=== PATIENT | male | born 1940 | race Caucasian/White ===

== ENCOUNTER 2018-09-17 23:15 | Inpatient (IN) ==
[2018-09-17] MEDS ORDERED: 0.9 % Sodium Chloride 1,000 ML IVC ONE (23:41)
--- NOTE | 2018-09-18 00:22 | Emergency Department Note ---
Disposition Clinical Impression: Ventricular dysfunction of heart, Mobitz type 2 second degree heart block Syncope Qualifiers: Syncope type: unspecified Qualified Code(s): R55 - Syncope and collapse Disposition: Admitted As Inpatient Condition: Fair Referrals: Rashad Solo MD [Primary Care Provider] - Forms: ED Satisfaction Letter Time of Disposition: 01:26 General Adult HPI - General Chief complaint: ED Syncope Stated complaint: syncopal episode Time Seen by Provider: 09/17/18 23:28 Source: patient Limitations: no limitations - History of Present Illness Pain Scale: 0 - Related Data Allergies Allergy/AdvReac Type Severity Reaction Status Date / Time No Known Allergies Allergy Unverified 03/02/16 10:58 Past Medical History - Past Medical History Medical history: Reports: coronary artery disease, diabetes, GERD, hypertension Surgical history: Reports: angioplasty/stent, herniorrhaphy, orthopedic, other Psychiatric history: Reports: no psych history - Social History Smoking Status: Never smoker Smokeless Tobacco Status: No Alcohol use: Reports: none, occasionally Drug use: Reports: none Physical Exam - General Limitations: no limitations General appearance: alert, in no apparent distress Course Vital Signs Temperature 98.0 F 09/17/18 23:16 Pulse Rate 76 09/17/18 23:16 Respiratory Rate 16 09/17/18 23:16 Blood Pressure 184/95 09/17/18 23:16 O2 Sat by Pulse Oximetry 96 09/17/18 23:16 Temperature 98.0 F 09/17/18 23:16 Pulse Rate 70 09/18/18 01:03 Respiratory Rate 14 09/18/18 01:03 Blood Pressure 183/88 09/18/18 01:03 O2 Sat by Pulse Oximetry 96 09/18/18 01:03 Oxygen Delivery Oxygen Delivery Room Air Medical Decision Making - Lab Data Result diagrams: 09/18/18 00:10 09/18/18 00:10 Lab Results 09/18/18 09/18/18 09/18/18 Range/Units 00:03 00:10 00:10 WBC 10.9 (4.3-11.1) K/mcL RBC 4.02 L (4.19-5.50) M/mcL Hgb 13.3 (12.9-16.9) g/dL Hct 37.7 (37.5-50.1) % MCV 93.8 (83.0-100.0) fL MCH 33.1 (28.0-33.3) pg MCHC 35.3 (31.6-35.5) g/dL RDW 12.4 (11.5-14.5) % Plt Count 229 (140-400) K/mcL MPV 9.4 (9.4-12.4) fL Immature Gran % 0.5 (0-4) % Seg Neutrophils % 79.0 % Lymphocytes % 10.2 % Monocytes % 9.0 % Eosinophils % 0.9 % Basophils % 0.4 % Neutrophils # 8.7 (1.6-8.9) K/mcL Lymphocytes # 1.1 (0.6-4.6) K/mcL Monocytes # 1.0 (0.0-1.3) K/mcL Eosinophils # 0.1 (0.0-0.6) K/mcL Basophils # 0.0 (0.0-0.2) K/mcL PT 12.1 (9.4-12.1) Seconds INR 1.1 APTT 32.6 (26.0-36.0) Seconds Sodium (136-145) mEq/L Potassium (3.5-5.1) mEq/L Chloride (98-107) mEq/L Carbon Dioxide (23-29) mEq/L BUN (8-23) mg/dL Creatinine (0.70-1.30) mg/dL Est GFR ( Amer) (> 60) Est GFR (Non-Af Amer) (> 60) BUN/Creatinine Ratio (6-26) Glucose (70-105) mg/dL Calculated Osmolality (280-300) Calcium (8.6-10.3) mg/dL Troponin I (< 0.04) ng/mL Urine Color Yellow (Yellow) Urine Clarity Clear (Clear) Urine pH 7.0 (5.0-8.0) pH Units Ur Specific [place] 1.011 (1.010-1.025) Urine Protein Negative (Neg-Trace) mg/dL Urine Glucose (UA) Normal (Normal) mg/dL Urine Ketones Negative (Negative) mg/dL Urine Blood Negative (Negative) Urine Nitrite Negative (Negative) Urine Bilirubin Negative (Negative) Urine Urobilinogen Normal (Normal) mg/dL Ur Leukocyte Esterase Trace H (Negative) Urine Microscopic RBC 0-3 (0-3) per hpf Urine Microscopic WBC 0-3 (0-3) per hpf Ur Squamous Epith Cells Few (None-Few) per lpf Urine Bacteria None Seen (None-Few) per hpf Hyaline Casts None Seen (None-Few) per lpf 09/18/18 Range/Units 00:10 WBC (4.3-11.1) K/mcL RBC (4.19-5.50) M/mcL Hgb (12.9-16.9) g/dL Hct (37.5-50.1) % MCV (83.0-100.0) fL MCH (28.0-33.3) pg MCHC (31.6-35.5) g/dL RDW (11.5-14.5) % Plt Count (140-400) K/mcL MPV (9.4-12.4) fL Immature Gran % (0-4) % Seg Neutrophils % % Lymphocytes % % Monocytes % % Eosinophils % % Basophils % % Neutrophils # (1.6-8.9) K/mcL Lymphocytes # (0.6-4.6) K/mcL Monocytes # (0.0-1.3) K/mcL Eosinophils # (0.0-0.6) K/mcL Basophils # (0.0-0.2) K/mcL PT (9.4-12.1) Seconds INR APTT (26.0-36.0) Seconds Sodium 127 L (136-145) mEq/L Potassium 4.2 (3.5-5.1) mEq/L Chloride 95 L (98-107) mEq/L Carbon Dioxide 25 (23-29) mEq/L BUN 16 (8-23) mg/dL Creatinine 0.78 (0.70-1.30) mg/dL Est GFR ( Amer) > 60 (> 60) Est GFR (Non-Af Amer) > 60 (> 60) BUN/Creatinine Ratio 21 (6-26) Glucose 142 H (70-105) mg/dL Calculated Osmolality 268 L (280-300) Calcium 9.7 (8.6-10.3) mg/dL Troponin I 0.03 (< 0.04) ng/mL Urine Color (Yellow) Urine Clarity (Clear) Urine pH (5.0-8.0) pH Units Ur Specific [place] (1.010-1.025) Urine Protein (Neg-Trace) mg/dL Urine Glucose (UA) (Normal) mg/dL Urine Ketones (Negative) mg/dL Urine Blood (Negative) Urine Nitrite (Negative) Urine Bilirubin (Negative) Urine Urobilinogen (Normal) mg/dL Ur Leukocyte Esterase (Negative) Urine Microscopic RBC (0-3) per hpf Urine Microscopic WBC (0-3) per hpf Ur Squamous Epith Cells (None-Few) per lpf Urine Bacteria (None-Few) per hpf Hyaline Casts (None-Few) per lpf Critical Care Time Critical Care Time: Yes Total Critical Care Time: 45 Attestation: Critical care performed: Time is exclusive of separately billable procedures. Time includes: direct patient care, patient reassessment, coordination of patient care, interpretation of data (laboratory data, radiology data, and respiratory data), review of patient's medical records, medical consultation and documentation of patient care. Procedures included in critical care time: Procedures excluded from critical care time: Attestation Statement - Attestation Attestation: I, Oscar Rodriguez DO, examined this patient [id number] and my medical decision-making was reviewed with Michael Connor PGY-1, Resident Physician. I agree with the documented findings, disposition and treatment plan as described except to the extent set forth below. I personally supervised and was present for the roque/critical portions of the procedures completed by the resident documented below. Please see my progress notes for details. 78-year-old male presents emergency room with concern for 2 syncopal events here today. He feels like he remembers the entirety of the event but then there is some spotty aspects to the recollection of the actual fall and injuries. Patient states that he felt like his knee gave out but does not remember going to the ground. Patient has no specific history of syncope in the past. He denies any cardiac related history as well. During any of the events here today he denied chest pain, shortness of breath. Denies any headache vision changes nausea vomiting or diarrhea. No fevers no chills. No falls trauma or injury prior to the event today. Patient has no visible signs of trauma deformity or injury to the extremities at this time. Is atraumatic. Pupils are equal and reactive. Extraocular muscles are intact. She has no midline tenderness is spine. Lungs are clear to auscultation heart is regular. Abdomen is soft. No guarding no rigidity no peritoneal symptoms noted at this point. Patient is able to answer questions appropriately. He is appropriate conversational status at this time. He has no acute neurologic deficits or symptoms. Patient is concerning secondary to the amnestic events revolve around the actual syncope here today. Syncope evaluation will be established with CT imaging the head chest x-ray EKG and screening labs looking for infectious or metabolic related derangement causing the presentation of this time. Disposition will most likely be admission the hospital once a full workup treatment course have been establi shed. Patient is otherwise in no distress. Vital signs are stable. Disposition pending. See detailed documentation the physical exam, medical intervention, medical decision-making and disposition in the resident physician's note. No critical care provider the patient's treatment course at this time. 0100 Patient has negative laboratory workup at this point. His entire syncope evaluation is unremarkable. The hospitalist Dr. Holm reviewed the case at length. No other recommendations or concerns were noted. Just after getting off the phone with the hospitalist, the patient went into what appears to be a ventricular escape rhythm with no discernible ventricular response with the sta ble atrial contractions. Patient had another syncopal events at that point. This is most likely the source of the symptoms. Patient had the pacemaker pads applied immediately. Otherwise the patient is stable. The rhythm strips were reviewed during this patient's syncopal event. He went into a ventricular escape rhythm and then subsequently into a second-degree type II heart block. All calcium channel blockers will be stopped at this time at the request of the casing builder Dr. Leary. They will reevaluate the patient the morning and determine if he needs temporary pacemaker or pacemaker placement that time. Patient does manage his cardiac issues up at [facility]. At this point do not feel comfortable transferring the patient told definitive cardiac evaluation is completed. The family also agrees with that at this time. Patient is otherwise clinically stable. 45 minutes of critical care by the patient's treatment course secondary to multidisciplinary intervention as well as cardiac monitoring and symptomatic control.
[2018-09-18 00:25] LABS: Bilirubin,Urine Negative (Negative); Blood,Urine Negative (Negative); Clarity,Urine Clear (Clear); Color,Urine Yellow (Yellow); Glucose,Urine (UA) Normal (Normal); Ketones,Urine Negative (Negative); Leukocyte Esterase,Urine Trace (Negative); Nitrite,Urine Negative (Negative); Protein,Urine Negative (Neg-Trace); Specific Gravity,Urine 1.011 (1.010-1.025); Urobilinogen,Urine Normal (Normal)
[2018-09-18 00:26] LABS: Basophils % 0.4 %; Eosinophils # 0.1 K/mcL (0.0-0.6); Eosinophils % 0.9 %; Hematocrit 37.7 % (37.5-50.1); Hemoglobin 13.3 g/dL (12.9-16.9); Immature Granulocytes % 0.5 % (0-4); Lymphocytes # 1.1 K/mcL (0.6-4.6); Lymphocytes % 10.2 %; Mean Corpuscular HGB Conc 35.3 g/dL (31.6-35.5); Mean Corpuscular Hemoglobin 33.1 pg (28.0-33.3); Mean Corpuscular Volume 93.8 fL (83.0-100.0); Mean Platelet Volume 9.4 fL (9.4-12.4); Neutrophils # 8.7 K/mcL (1.6-8.9); Platelet Count 229 K/mcL (140-400); Red Blood Count 4.02 M/mcL (4.19-5.50); Red Cell Distribution Width 12.4 % (11.5-14.5)
[2018-09-18 00:27] LABS: Bacteria,Urine None Seen per hpf (None-Few); Hyaline Casts,Urine None Seen per lpf (None-Few); RBC,Urine 0-3 per hpf (0-3); Squamous Epithelial Cell,Urine Few per lpf (None-Few); WBC,Urine 0-3 per hpf (0-3)
--- NOTE | 2018-09-18 00:27 | Emergency Department Note ---
Disposition Clinical Impression: Ventricular dysfunction of heart, Mobitz type 2 second degree heart block Syncope Qualifiers: Syncope type: unspecified Qualified Code(s): R55 - Syncope and collapse Disposition: Admitted As Inpatient Condition: Good Time of Disposition: 03:08 General Adult HPI - General Chief complaint: ED Syncope Stated complaint: syncopal episode Time Seen by Provider: 09/17/18 23:28 Source: patient Limitations: no limitations Nursing Notes Reviewed: Yes Vital Signs Reviewed: Yes - History of Present Illness HPI Narrative: Mr. Loomis is a 78M who presents today after a near syncopal episode at home. He reports he has had 3 of these episodes in the past 24 hours. Reports during each of these episodes he began to feel very lightheaded. Denies any LOC. Pt's is at bedside and reports the patient did appear to be confused after a fall associated with one of these episodes. Pt stated he feels like he can recall all details of events, but does admit to some gaps in memory of the fall and associated injuries. Pt denies any previous history of syncope prior to this. He denies any cardiac history beyond a TAVR procedure. Denies any recent illnesses. Denies any fever, chills, chest pain, shortness of breath, headaches, blurry vision, nausea, vomiting, numbness, or tingling. Pain Scale: 0 - Related Data Home Medications Medication Instructions Recorded Confirmed Aspirin [Piatt Aspirin EC] 81 mg PO DAILY 09/18/18 09/18/18 Atorvastatin [Lipitor] 40 mg PO HS 09/18/18 09/18/18 Finasteride [Proscar] 5 mg PO DAILY 09/18/18 09/18/18 Fluorouracil [Fluoroplex] 1 applic TP DAILY 09/18/18 09/18/18 Metformin HCl 500 mg PO DAILY 09/18/18 09/18/18 Metoprolol Succinate [Toprol Xl] 25 mg PO DAILY 09/18/18 09/18/18 Tamsulosin [Flomax] 0.4 mg PO DAILY 09/18/18 09/18/18 Allergies Allergy/AdvReac Type Severity Reaction Status Date / Time No Known Allergies Allergy Unverified 03/02/16 10:58 All systems ED: reviewed and negative except as stated. Review of Systems: As Per HPI Constitutional: Reports: weakness. Denies: fever, chills Eyes: Denies: vision change Cardiovascular: Reports: syncope. Denies: chest pain, palpitations, dyspnea on exertion, orthopnea, edema Respiratory: Denies: cough, dyspnea, wheezes Gastrointestinal: Denies: abdominal pain, nausea Endocrine: Reports: fatigue Past Medical History - Past Medical History Attestation: Yes The following information was validated with the patient. Source: patient, old records reviewed, obtained from family, nursing notes reviewed Medical history: Reports: coronary artery disease, diabetes, GERD, hypertension Surgical history: Reports: angioplasty/stent, herniorrhaphy, orthopedic, other Psychiatric history: Reports: no psych history - Social History Smoking Status: Never smoker Smokeless Tobacco Status: No Alcohol use: Reports: none, occasionally Drug use: Reports: none Physical Exam Constitutional: Elderly male in no acute distress Head: Normocephalic, atraumatic Eyes: PERRL, EOMI, sclera anicteric Lungs: Clear to auscultation bilaterally. Nonlabored breathing. No wheezes, rales, or rhonchi noted. Cardiac: RRR. +s1 +S2 Grade 2 blowing diastolic murmur. No clicks, or rubs noted. GI: Abdomen soft, nontender, nondistended. Extremities: Warm, radial pulses palpable and symmetrical. No cyanosis, pedal edema, or calf tenderness. Neuro: Alert and oriented 3. No focal deficits. Strength 5/5 in all 4 extremities. Sensation intact. No pronator drift. CN II-XII intact. Normal speech. Skin: Warm, dry, and intact. - General Limitations: no limitations General appearance: alert, in no apparent distress Course Course Narrative: Initial history and physical exam were concerning for unknown eitiology of syncope, possibly metabolic derangement or cardiac arrhythmia. Initial evaluation included CBC, BMP, PT/INT, EKG, Troponin, CT head, and CXR. Diagnoses considered including CVA were less likely with no neurological deficits, ACS with no chest pain, shortness of breath, or nausea. CXR showed no acute abnormality. Labs were grossly unremarkable except for hyponaturemia of 127. Troponin was negative. CT head was negative. Pt's case was discussed with hospitalist, Dr Holm, who accepted the patient for admission for further syncope workup. Shortly after contacting the hospitalist the pt reported he was beginning to experience another episode of lightheadedness. Telemetry showed distinct p-waves but no QRS complexes suggestive of a heart block for approximately 5 "beats". Another similar episodes occurred approximately 10 minutes later for approximately 10 sustained "beats". call or contact centre coach cardiology, Dr Leary, was contacted. He recommended holding home Metoprolol, and placing transcutanous pacer pads on patient. However pt began to experience these episodes more frequently, approximately every 2-5 minutes. There was also noted Type II 2nd degree heart block after t hese escape rhythms. Dr Rodriguez contacted Dr Leary again. At that time it was recommended the patient have an IJ central line placed and be started on Dopamine. The IJ placed without any complication by Dr Rodriguez, however several attempts were made secondary to vascular anomaly. Pt tolerated procedure well and there were no complications. Bleeding was controlled well throughout the procedure. Dopamine was started peripherally for a short period of time until the IJ was established. Cardiology was contacted again and reported they are coming in the emergency room to place a temporary pacemaker. Once the evaluation by cardiology is complete and the pacer is placed, a completed disposition for admission versus transfer to outside facility will be completed at that time. Patient is otherw ise stable but does have a concerning critical arrhythmia. Definitive management is required. Patient was discussed and reviewed with the overnight attending ER physician Dr. Alfredo in case there is any recommendations for transfer. Hospitalist, Dr Holm, was updated of all these events. - Consultations Consultation #1: Discussed pt's case with Dr Holm, hospitalist, who accepted the patient for admission for further syncope workup. Time: 01:10 Consultation #2: Clinical Team Lead, Dr Leary, was contacted with multiple episodes of no ventricular response and Type II 2nd degree heart block. He recommended holding any anti-arrhythmic home medications and placing transcutaneous pacer pads on patient. Placed consult for cardiology. Time: 01:30 Vital Signs Temperature 98.0 F 09/17/18 23:16 Pulse Rate 76 09/17/18 23:16 Respiratory Rate 16 09/17/18 23:16 Blood Pressure 184/95 09/17/18 23:16 O2 Sat by Pulse Oximetry 96 09/17/18 23:16 Temperature 97.9 F 09/19/18 08:07 Pulse Rate 79 09/19/18 10:00 Respiratory Rate 20 09/19/18 10:00 Blood Pressure 133/101 09/19/18 10:00 O2 Sat by Pulse Oximetry 92 09/19/18 10:00 Oxygen Delivery Oxygen Delivery Nasal Cannula Procedures - Central Line Placement Right IJ Central Line Inserted*: Yes Central Line Catheter Replacement*: No Central Line Insertion: elective Consent Obtained: verbal consent, written consent Procedural Pause: verify patient name and date of , timeout performed per policy, sena and assess the site, assemble equipment and verify supplies, perform hand hygiene Patient Placed on Monitor/Pulse Ox: Yes During the Procedure: clinician is wearing sterile gloves, cap, mask,& gown d uring insertion, sterile field and sterile technique are maintained, patient's face is covered with drape or mask and wearing a cap, everyone in room is wearing a mask Central Line Prep: Chlorhexidine scrub, sterile drapes applied Prep the Procedure Site: apply chloraprep to the skin using a back and forth scrubbing motion, apply chloraprep for 30 seconds (upper body), 1-2 min (femoral sites), allow prep to dry, drape the patient with a full body drape Local Anesthetic: lidocaine 1% Ultrasound Used for Placement: Yes Central Line Lumen Inserted: triple Post Procedure: sutured in place, good blood return, all ports aspirated, flushed, capped, sterile dressing applied, guide wire removed and visualized, dressing is dated Post Procedure X-Ray: tip of catheter in good position, no pneumothorax seen Patient Tolerated Procedure: well, no complications Complications: none Name of Clinician Inserting Central Line: Dr Rodriguez Clinician Assisting/Completing Checklist: Dr Connor Date: 09/18/18 Time: 02:45 Medical Decision Making - Medical Records Medical records reviewed: Yes I reviewed the patient's medical records. - Lab Data Lab results reviewed: Yes I reviewed the patient's lab results. Result diagrams: 09/19/18 06:06 09/19/18 06:06 Lab Results 09/18/18 09/18/18 09/18/18 Range/Units 00:03 00:03 00:10 WBC 10.9 (4.3-11.1) K/mcL RBC 4.02 L (4.19-5.50) M/mcL Hgb 13.3 (12.9-16.9) g/dL Hct 37.7 (37.5-50.1) % MCV 93.8 (83.0-100.0) fL MCH 33.1 (28.0-33.3) pg MCHC 35.3 (31.6-35.5) g/dL RDW 12.4 (11.5-14.5) % Plt Count 229 (140-400) K/mcL MPV 9.4 (9.4-12.4) fL Immature Gran % 0.5 (0-4) % Seg Neutrophils % 79.0 % Lymphocytes % 10.2 % Monocytes % 9.0 % Eosinophils % 0.9 % Basophils % 0.4 % Neutrophils # 8.7 (1.6-8.9) K/mcL Lymphocytes # 1.1 (0.6-4.6) K/mcL Monocytes # 1.0 (0.0-1.3) K/mcL Eosinophils # 0.1 (0.0-0.6) K/mcL Basophils # 0.0 (0.0-0.2) K/mcL PT (9.4-12.1) Seconds INR APTT (26.0-36.0) Seconds Sodium (136-145) mEq/L Potassium (3.5-5.1) mEq/L Chloride (98-107) mEq/L Carbon Dioxide (23-29) mEq/L BUN (8-23) mg/dL Creatinine (0.70-1.30) mg/dL Est GFR ( Amer) (> 60) Est GFR (Non-Af Amer) (> 60) BUN/Creatinine Ratio (6-26) Glucose (70-105) mg/dL Calculated Osmolality (280-300) Calcium (8.6-10.3) mg/dL Troponin I (< 0.04) ng/mL Urine Color Yellow (Yellow) Urine Clarity Clear (Clear) Urine pH 7.0 (5.0-8.0) pH Units Ur Specific [place] 1.011 (1.010-1.025) Urine Protein Negative (Neg-Trace) mg/dL Urine Glucose (UA) Normal (Normal) mg/dL Urine Ketones Negative (Negative) mg/dL Urine Blood Negative (Negative) Urine Nitrite Negative (Negative) Urine Bilirubin Negative (Negative) Urine Urobilinogen Normal (Normal) mg/dL Ur Leukocyte Esterase Trace H (Negative) Urine Microscopic RBC 0-3 (0-3) per hpf Urine Microscopic WBC 0-3 (0-3) per hpf Ur Squamous Epith Cells Few (None-Few) per lpf Urine Bacteria None Seen (None-Few) per hpf Hyaline Casts None Seen (None-Few) per lpf Urine Creatinine 35 mg/dL Urine Sodium 62.8 mEq/L 09/18/18 09/18/18 Range/Units 00:10 00:10 WBC (4.3-11.1) K/mcL RBC (4.19-5.50) M/mcL Hgb (12.9-16.9) g/dL Hct (37.5-50.1) % MCV (83.0-100.0) fL MCH (28.0-33.3) pg MCHC (31.6-35.5) g/dL RDW (11.5-14.5) % Plt Count (140-400) K/mcL MPV (9.4-12.4) fL Immature Gran % (0-4) % Seg Neutrophils % % Lymphocytes % % Monocytes % % Eosinophils % % Basophils % % Neutrophils # (1.6-8.9) K/mcL Lymphocytes # (0.6-4.6) K/mcL Monocytes # (0.0-1.3) K/mcL Eosinophils # (0.0-0.6) K/mcL Basophils # (0.0-0.2) K/mcL PT 12.1 (9.4-12.1) Seconds INR 1.1 APTT 32.6 (26.0-36.0) Seconds Sodium 127 L (136-145) mEq/L Potassium 4.2 (3.5-5.1) mEq/L Chloride 95 L (98-107) mEq/L Carbon Dioxide 25 (23-29) mEq/L BUN 16 (8-23) mg/dL Creatinine 0.78 (0.70-1.30) mg/dL Est GFR ( Amer) > 60 (> 60) Est GFR (Non-Af Amer) > 60 (> 60) BUN/Creatinine Ratio 21 (6-26) Glucose 142 H (70-105) mg/dL Calculated Osmolality 268 L (280-300) Calcium 9.7 (8.6-10.3) mg/dL Troponin I 0.03 (< 0.04) ng/mL Urine Color (Yellow) Urine Clarity (Clear) Urine pH (5.0-8.0) pH Units Ur Specific [place] (1.010-1.025) Urine Protein (Neg-Trace) mg/dL Urine Glucose (UA) (Normal) mg/dL Urine Ketones (Negative) mg/dL Urine Blood (Negative) Urine Nitrite (Negative) Urine Bilirubin (Negative) Urine Urobilinogen (Normal) mg/dL Ur Leukocyte Esterase (Negative) Urine Microscopic RBC (0-3) per hpf Urine Microscopic WBC (0-3) per hpf Ur Squamous Epith Cells (None-Few) per lpf Urine Bacteria (None-Few) per hpf Hyaline Casts (None-Few) per lpf Urine Creatinine mg/dL Urine Sodium mEq/L - Radiology Data Radiology results reviewed: Yes I reviewed the patient's radiology results. Head CT 09/18/18 23:41 IMPRESSION: No acute intracranial abnormality. D/ / Holland Hines / Holland Hines Interpreting Provider: Holland Hines - EKG Data EKG #1 EKG attestation: Yes I reviewed and interpreted this EKG. EKG results narrative: EKG shows normal sinus rhythm with rate of 71. Left axis deviation. Prolonged [place] interval greater than 220, ventricular rate 50 and 90. Abnormal progression, early transition QRS >0 in V2. LVH with secondary repolarization abnormality, multi-LVH criteria. Attestation Statement - Attestation Attestation: I, Oscar Rodriguez DO, examined this patient [id number] and my medical decision-making was reviewed with Michael Connor PGY-1, Resident Physician. I agree with the documented findings, disposition and treatment plan as described except to the extent set forth below. I personally supervised and was present for the roque/critical portions of the procedures completed by the resident documented below. Please see my progress notes for details.
[2018-09-18 00:33] LABS: INR 1.1; Prothrombin Time 12.1 Seconds (9.4-12.1)
[2018-09-18 00:36] LABS: Activated Partial Thrombo Time 32.6 Seconds (26.0-36.0)
[2018-09-18 00:48] LABS: BUN/Creatinine Ratio 21 (6-26); Blood Urea Nitrogen 16 mg/dL (8-23); Calcium 9.7 mg/dL (8.6-10.3); Carbon Dioxide 25 mEq/L (23-29); Chloride 95 mEq/L (98-107); Glucose 142 mg/dL (70-105); Osmolality,Calculated 268 (280-300); Potassium 4.2 mEq/L (3.5-5.1); Sodium 127 mEq/L (136-145); Troponin I 0.03 ng/mL (< 0.04); eGFR For Non-African Americans > 60 (> 60)
[2018-09-18 02:38] LABS: Sodium, Urine 62.8 mEq/L
[2018-09-18] MEDS ORDERED: Ondansetron 4 MG/2 ML VIAL IVP ONE (03:12)
[2018-09-18] MEDS ORDERED: ceFAZolin 1,000 MG in D5% in Water 100 ML IVPB ONE (04:34)
--- NOTE | 2018-09-18 04:47 | Cardiology Consult Note ---
Date of Encounter: 09/18/18 Time of Encounter: 04:42 Assessment and Plan (1) Ventricular asystolia Current Visit: Yes Status: Acute Multiple episodes s/p TVP rate at 60 bpm, ma at 7 and sensitivity at .8. Patient will be transferred to ICU and likely PPM today (2) Mobitz type 2 second degree heart block Current Visit: Yes Status: Acute AV Block with ventricular standstill s/p TVP Discussion w patient/family: The assessment and plan as outlined above was discussed with the patient and/or family members who expressed understanding and agreement. All questions were answered. Thank you for involving us in the care of your patient. Please call with any questions. History of Present Illness Consult date: 09/18/18 Consult reason: Asystole Chief complaint: Syncope History of present illness: Mr. Loomis is a 78 year old male s/p TAVR x 3 months ago here for syncope. Patient found to have multiple runs of ventricular standstill for prolonged periods with one leading to TLOC. Patient placed on dopamine for improved rate but failed. TVP placed due to frequent episodes of asystole while in ED. Episodes lasted upto 6-10 seconds symptomatic. [employer] was called but due to rapid consecutive episodes TVP placed in the ER. Triple lumen catheter was exchanged over for Cordis and TVP wire threaded through. Eventually after second wire capture was obtained. Patient did not have any episodes of syncope or TLOC during procedure. Cxray confirmed placment in the RV. Final reading pending. Past Med Surg Social Fam HX - Past Medical History Medical history: coronary artery disease, diabetes, GERD, hypertension Additional medical history: irreg heart. factor V defeciency. bph Psychiatric history: no psych history - Past Surgical History Surgical History: angioplasty/stent, herniorrhaphy, orthopedic, other Additional surgical history: t&a. cardiac and carotid stents. ankle fx. aortic valve replacement - Social History Smoking Status: Never smoker Smokeless Tobacco Status: No Alcohol use: none, occasionally Drug use: none Medications and Allergies Allergy/AdvReac Type Severity Reaction Status Date / Time No Known Allergies Allergy Unverified 03/02/16 10:58 All Systems Review: The remainder of the systems were reviewed and are negative Physical Examination Vital Signs, Last 4 Hours Pulse Resp BP Pulse Ox 09/18/18 04:36 78 24 118/65 93 09/18/18 03:58 67 18 120/65 95 09/18/18 03:27 74 16 143/75 96 09/18/18 03:11 83 14 177/85 95 09/18/18 02:59 65 15 121/67 92 09/18/18 02:06 77 14 160/85 96 09/18/18 01:54 75 15 171/97 96 09/18/18 01:38 69 14 165/108 97 09/18/18 01:03 70 14 183/88 96 General: Conversant, No Apparent Distress HEENT: Atraumatic, Normocephaly, Mucus Membranes Moist Neck: No JVD, Normal carotid pulses Cardiac: Reg Rate and Rhythm, Normal S1 and S2, No Murmur Lungs: Normal Breath Sounds, No Wheeze, Rales, Rhonchi Neuro: Alert and responsive, No focal deficits noted Abdomen: Soft, Non-Tender Skin: No rashes noted on visualized skin Musculoskeletal: No Chest Wall Tenderness Extremities: No Clubbing, No Cyanosis, No Edema, Normal Pulses Results 09/18/18 00:10 09/18/18 00:10 Lab Results 09/18/18 09/18/18 09/18/18 00:10 00:10 00:10 WBC 10.9 Hgb 13.3 Hct 37.7 Plt Count 229 INR 1.1 APTT 32.6 Sodium 127 L Potassium 4.2 Chloride 95 L Carbon Dioxide 25 BUN 16 Creatinine 0.78 Glucose 142 H Calcium 9.7 Troponin I 0.03 Consult Discharge Plan - Plan Referrals: Rashad Solo MD [Primary Care Provider] -
--- NOTE | 2018-09-18 04:54 | Procedure Note ---
Date of procedure: 09/18/18 Pre-op diagnosis: Ventricular asystole Procedure: TVP placed through the RIJ. Wire was reinserted after pulled out, IV Vancomycin 1 gm x 1 and Ancef 1 gm for infection prevention. (TVP wire reinserted). No other TV wires available in hospital and emergent need. Wire likely Sterile but this was a precaution since it was pulled out laying on sterile gown on top of patient for 20 minutes. Anesthesia: local Surgeon: Malachi Leary Was there an assistant grocery store manager present: No Estimated blood loss (cc): 5 Specimen: none Pathology: none sent (TVP placed after exchanging triple lumen with cordis) Condition: stable Disposition: ICU
[2018-09-18] MEDS ORDERED: Naloxone 0.4 MG/ML INJ IVP PRN (04:59)
[2018-09-18] MEDS ORDERED: 0.9 % Sodium Chloride 1,000 ML IVC SCH (05:00)
--- NOTE | 2018-09-18 05:08 | Internal Med History&Physical ---
Date of Encounter: 09/18/18 Time of Encounter: 05:05 Internal Medicine - H&P: HPI Chief complaint: Syncope History of present illness: Mr. Loomis is a 78 year old male with a past medical history of hyperlipidemia, diabetes, hypertension, coronary artery disease status post cardiac stents in 2006, TAVR 3 months ago and left carotid artery stent placement who presented to the ED after several episodes of syncope. Patient reports having 2 syncopal events over the past 2 days that were unwitnessed. First of which occurred around noon yesterday while the patient was ambulating up stairs. The last one of which occurred while the patient was urinating in the evening. In both situations patient reports felt lightheaded just before losing consciousness. Patient's checked his blood pressure and blood sugar after the first episode and found to be 176/100 and 243 respectively. No reports of shortness of breath, chest pain or palpitations prior to any of the events. Patient has no prior history of syncope. Denies any recent illness, changes to his blood pressure medications, or focal weakness. No prior history of seizures. Upon initial evaluation, patient was afebrile, hypertensive with a blood pressure of 184/95 and heart rate of 76 saturating 96% on room air. Laboratory workup was relatively unremarkable aside from a mild hyponatremia of 127. Chest x-ray and CT of the head were unremarkable. While in the ED patient went into what appeared to be a ventricular escape rhythm and had another syncopal event. Patient had the pacemaker pads applied immediately. The rhythm strips were reviewed which showed a ventricular escape rhythm and then subsequently moving into a second-degree type II heart block. Cardiology was consulted in the and recommended placement of patient on dopamine after placement of central line. Patient failed to respond and continued to have frequent episodes of asystole while in the ED lasting 6-10 seconds. Patient was subsequently taken to the [facility] where a transvenous pacer was placed. Patient was started on IV vancomycin and Ancef for infection prevention by cardiology. On my assessment of the patient, he was awake, alert oriented 3. Very pleasant. Denied any pain at this time. Past Med Surg Social Fam HX - Past Medical History Medical history: coronary artery disease, diabetes, GERD, hypertension Additional medical history: irreg heart. factor V defeciency. bph Psychiatric history: no psych history - Past Surgical History Surgical History: angioplasty/stent, herniorrhaphy, orthopedic, other Additional surgical history: t&a. cardiac and carotid stents. ankle fx. aortic valve replacement - Social History Smoking Status: Never smoker Smokeless Tobacco Status: No Alcohol use: none, occasionally Drug use: none Internal Medicine - H&P: Meds Aspirin [[place] Aspirin EC] 81 mg PO DAILY 09/18/18 [History] Atorvastatin [Lipitor] 40 mg PO HS 09/18/18 [History] Finasteride [Proscar] 5 mg PO DAILY 09/18/18 [History] Fluorouracil [Fluoroplex] 1 applic TP DAILY 09/18/18 [History] Metformin HCl 500 mg PO DAILY 09/18/18 [History] Metoprolol Succinate [Toprol Xl] 25 mg PO DAILY 09/18/18 [History] Tamsulosin [Flomax] 0.4 mg PO DAILY 09/18/18 [History] Allergy/AdvReac Type Severity Reaction Status Date / Time No Known Allergies Allergy Unverified 03/02/16 10:58 All Systems PM: A 10-system review of systems was performed and is negative for pertinent findings except as documented above in the HPI. - Constitutional Constitutional: no chills, no fever(s), no night sweats - EENT Eyes: no change in vision, no discharge, no pain, no photophobia Ears: no ear discharge, no ear pain, no tinnitus Nose, mouth and throat: no dysphagia, no nasal discharge, no neck pain, no sore throat - Cardiovascular Cardiovascular ROS IM: no chest pain, no diaphoresis, no dyspnea, no lightheadedness, no palpitations, no syncope - Respiratory Respiratory: no cough, no dyspnea, no wheezing, no excessive phlegm production - Gastrointestinal Gastrointestinal: no abdominal pain, no diarrhea, no hematemesis, no hematochezia, no melena, no nausea, no vomiting - Musculoskeletal Musculoskeletal ROS IM: no numbness, no tingling - Integumentary Integumentary IM: no rash, no unusual bruising - Neurological Neurological ROS: no confusion, no convulsions, no focal weakness, no numbness, no tingling, no tremor(s) - Hematologic/Lymphatic Hematologic/Lymphatic: no easy bruising - Constitutional Vitals: Temp Pulse Resp BP Pulse Ox 98.0 F 78 24 118/65 93 09/17/18 23:16 09/18/18 04:36 09/18/18 04:36 09/18/18 04:36 09/18/18 04:36 Exam: General: Alert and oriented 3 lying in bed in no acute distress Skin:Normal color, no rash, no lesions. HEENT:EOM, pupils equal, round and reactive. CVC in place in right IJ. Cardiovascular:Normal S1 & S2, 3/6 systolic murmur Lungs:Normal breath sounds, no wheezes or crackles. Abdomen:Soft, non-tender, no rigidity. Extremities:No deformity, no edema or tenderness, no joint swelling or clubbing. Neurological:Normal cognition and motor skills. Pulses:Carotid and radial pulses normal +2. Rest of the physical exam is non contributory Internal Med - H&P Results - Labs CBC & Chem 7: 09/18/18 06:15 09/18/18 06:15 Labs: Short CBC 09/18/18 Range/Units 00:10 WBC 10.9 (4.3-11.1) K/mcL Hgb 13.3 (12.9-16.9) g/dL Hct 37.7 (37.5-50.1) % Plt Count 229 (140-400) K/mcL Neutrophils # 8.7 (1.6-8.9) K/mcL BMP 09/18/18 00:10 Sodium 127 L Potassium 4.2 Chloride 95 L Carbon Dioxide 25 BUN 16 Creatinine 0.78 Glucose 142 H Calcium 9.7 Cardiac Enzymes 09/18/18 Range/Units 00:10 Troponin I 0.03 (< 0.04) ng/mL Urine 09/18/18 Range/Units 00:03 Urine Color Yellow (Yellow) Urine Clarity Clear (Clear) Urine pH 7.0 (5.0-8.0) pH Units Ur Specific [place] 1.011 (1.010-1.025) Urine Protein Negative (Neg-Trace) mg/dL Urine Glucose (UA) Normal (Normal) mg/dL - Impressions ITS Impressions Chest X-Ray 09/17/18 23:41 IMPRESSION: No acute focal airspace consolidation. D/ / Abraham Cisse MD / Abraham Cisse MD Interpreting Provider: Abraham Cisse MD Chest X-Ray 09/18/18 02:45 IMPRESSION: Tip of central line projects in region of proximal SVC. No definite pneumothorax D/ / Chriss Posada MD / Chriss Posada MD Interpreting Provider: Chriss Posada MD Chest X-Ray 09/18/18 04:33 IMPRESSION: 1. Right internal jugular approach pacer wire with distal lead tip overlying the right ventricular apex. 2. No acute focal airspace consolidation. D/ / Abraham Cisse MD / Abraham Cisse MD Interpreting Provider: Abraham Cisse MD Head CT 09/18/18 23:41 IMPRESSION: No acute intracranial abnormality. D/ / Holland Hines / Holland Hines Interpreting Provider: Holland Hines - Assessment and Plan (1) Syncope Current Visit: Yes Status: Acute Assessment and plan: Patient with history significant for coronary artery disease status post stents and TAVR last April presents with 2 unwitnessed syncopal episodes occurring outside the hospital both of which preceded by symptoms of lightheadedness. While in the ED patient was found to have multiple runs of ventricular standstill leading to another episode of loss of consciousness which appears to be the etiology of the patient's syncopal episodes. Now status post transvenous pacer placement. No evidence of an ischemic event as patient does not report any chest pain. Furthermore initial troponin negative and EKG does not show any ischemic changes. -We will keep nothing by mouth for placement of permanent pacemaker. -Obtain echocardiogram -Repeat troponin -Appreciate cardiology recommendations Qualifiers: Syncope type: unspecified Qualified Code(s): R55 - Syncope and collapse (2) Ventricular asystolia Current Visit: Yes Status: Acute Assessment and plan: See above (3) Mobitz type 2 second degree heart block Current Visit: Yes Status: Acute (4) Type 2 diabetes mellitus Current Visit: Yes Status: Acute Assessment and plan: Blood glucose checks Q 6hrs. sliding scale insulin. Qualifiers: Chronic kidney disease stage: unspecified stage Qualified Code(s): E11.22 - Type 2 diabetes mellitus with diabetic chronic kidney disease; Z79.4 - terminal superintendent (current) use of insulin (5) Coronary artery disease Current Visit: Yes Status: Acute Assessment and plan: History of coronary artery disease status post stent placement. Resume medical management once medications are verified. Qualifiers: Qualified Code(s): I25.10 - Atherosclerotic heart disease of [place] coronary artery without angina pectoris (6) BPH (benign prostatic hyperplasia) Current Visit: Yes Status: Acute Qualifiers: Lower urinary tract symptom detail: unspecified Qualified Code(s): N40.1 - Benign prostatic hyperplasia with lower urinary tract symptoms (7) DVT prophylaxis Current Visit: Yes Status: Acute Assessment and plan: Pneumatic compression devices for now in anticipation for permanent cardiac pacemaker. - Time Spent With Patient Total time spent is greater than 50% in coordination of care (as documented) at patient's floor/unit and/or counseling patient:
[2018-09-18] MEDS ORDERED: Dextrose Gel 15 GM/37.5 ML TUBE PO PRN ×2 (05:11)
[2018-09-18] MEDS ORDERED: *HR* Dextrose 50 % in Water (Syg) 50 ML SYRINGE IVP PRN (05:11)
[2018-09-18] MEDS ORDERED: D5% in Water 1,000 ML IVC PRN (05:11)
[2018-09-18] MEDS: Insulin LISPRO 300 UNITS/3 ML VIAL SQ SCH ×4 (06:01→23:44)
[2018-09-18 06:25] LABS: Basophils % 0.1 %; Eosinophils % 0.1 %; Hematocrit 36.1 % (37.5-50.1); Hemoglobin 12.5 g/dL (12.9-16.9); Immature Granulocytes % 0.3 % (0-4); Lymphocytes # 0.7 K/mcL (0.6-4.6); Lymphocytes % 5.7 %; Mean Corpuscular HGB Conc 34.6 g/dL (31.6-35.5); Mean Corpuscular Hemoglobin 32.7 pg (28.0-33.3); Mean Corpuscular Volume 94.5 fL (83.0-100.0); Mean Platelet Volume 9.1 fL (9.4-12.4); Monocytes # 0.7 K/mcL (0.0-1.3); Neutrophils # 10.3 K/mcL (1.6-8.9); Platelet Count 214 K/mcL (140-400); Red Blood Count 3.82 M/mcL (4.19-5.50); Red Cell Distribution Width 12.4 % (11.5-14.5); Segmented Neutrophils % 87.8 %
[2018-09-18 06:35] LABS: INR 1.1; Prothrombin Time 12.8 Seconds (9.4-12.1)
[2018-09-18 06:44] LABS: Alanine Aminotransferase 14 Units/L (7-52); Albumin 3.9 g/dL (3.5-5.7); Albumin/Globulin Ratio 1.6 (1.1-2.2); Alkaline Phosphatase 60 Units/L (34-104); Aspartate Amino Transferase 15 Units/L (13-39); BUN/Creatinine Ratio 22 (6-26); Bilirubin,Total 0.7 mg/dL (0.3-1.0); Blood Urea Nitrogen 15 mg/dL (8-23); Calcium 9.1 mg/dL (8.6-10.3); Carbon Dioxide 25 mEq/L (23-29); Chloride 98 mEq/L (98-107); Globulin 2.5 g/dL (2.4-3.5); Glucose 172 mg/dL (70-105); Magnesium 1.7 mg/dL (1.6-2.6); Osmolality,Calculated 273 (280-300); Potassium 4.2 mEq/L (3.5-5.1); Sodium 129 mEq/L (136-145); Total Protein 6.4 g/dL (6.4-8.9); eGFR For Non-African Americans > 60 (> 60)
--- NOTE | 2018-09-18 10:03 | Event Note ---
<Herman Jaramillo - Last Filed: 09/18/18 09:59> Date of Encounter: 09/18/18 Time of Encounter: 09:59 Patient admitted for syncope secondary to ventricular asystolia. Patient had a transvenous pacer placed early this morning at 5 AM. He denies any chest pain or further episodes since placement of temporary pacemaker. Patient has planned permanent pacemaker placement today. We are waiting medicine reconciliation and we will restart his home medications. Patient does not have any complaints this morning. General: pleasant, without distress HEENT: Head atraumatic, normocephalic, EOMI, PERRL, absent ear discharge or trauma, Moist Mucous Membranes, uvula midline Neck: nontender to palpation, absent lymphadenopathy right IJ central line without signs of erythema Cardiovascualr: Regular rate and rhythm with no murmur, absent gallops or rubs, absent pedal edema, radial pulses 2 out of 4 Lungs: Clear to auscultation bilaterally, not in respiratory distress Abdomen: Soft nontender, nondistended positive bowel sounds, absent hepatomegaly Skin: warm and dry, absent rash, absent open wounds and nodules MSK: absent clubbing, cyanosis, joints without swelling Neuro: Cranial nerves II through XII intact, UE and LE sensation equal bilaterally, UE and LEstrength 5/5, alert oriented 3, Psych: good insight and judgment Plan: Await placement of pacemaker, continue nothing by mouth. Continue sliding-scale insulin every 6 hours. <Nehal López - Last Filed: 09/18/18 14:31> Date of Encounter: 09/18/18 I examined this patient and my medical decision-making was reviewed with the Resident Physician. I agree with the documented findings, disposition and treatment plan as described except to the extent set forth below.
[2018-09-18] MEDS ORDERED: CeFAZolin Syr 2,000MG/20 ML 2,000 MG/20 ML SYRINGE IVPB ONE (10:20)
--- NOTE | 2018-09-18 10:24 | Electrophysiology Consult Note ---
<Mohsen Schultz R - Last Filed: 09/18/18 10:33> Date of Encounter: 09/18/18 Time of Encounter: 09:30 Assessment and Plan (1) Syncope Status: Acute Per EP: [address] negative for any acute findings. Electrolytes stable. Blood pressure stable. Qualifiers: Syncope type: unspecified Qualified Code(s): R55 - Syncope and collapse (2) Ventricular asystolia Status: Acute Per EP: Seen by Dr. Stephen in clinic Tuesday: "Previous testing: TTE, [facility], 04/2018: s/p TAVR 29 mm CoreValve. Valve is seated low in the outflow tract, but appears stable. There is trivial to mild perivalvular regurgitation along the lateral, posterior lateral edge. In the apical views, trivial anterior perivalvular leak is seen as well. Overall, severity of regurgitation is mild and unchanged from prior echo. No stenosis. Mean gradient unchanged from prior, 6 mmHg. Dimensionless index 0.69 with a valve area of 2.16 cm2. EF 57%. Concentric LVH. Mildly enlarged left atrium. RV is normal in size and function. Mild tricuspid valve regurgitation. TTE 03/07/2018: LVEF 55%. Severely sclerotic and calcified aortic valve with reduced excursion. Peak velocity 4.1 m/s. Mean gradient 42 mmHg. Dimensionless index 0.2. TTE 12/03/14: LVEF 60%, mild diastolic dysfunction, mildly dilated LA, moderately calcified aortic valves with moderate , mild AR, normal RVSP. CUS 12/05/15: Bilateral carotids with non-stenotic plaque. TTE 12/05/15: LVEF 60%, mild LVH, mild diastolic dysfunction, normal RV, severe (PV 4.05, MG 40, PORTER 0.7), mild AR. LHC 03/09/16: 30% ISR in mid-LAD, 40% ISR in mid RCA, 70% stenosis in D3, remaining coronaries with mild-moderate disease. TTE 03/18/2017 ([facility]): EF 60-65%. Mild diastolic dysfunction. Normal RV size and function. Trileaflet aortic valve, moderately thickened and calcified. Trivial to mild aortic regurgitation. Moderate to severe aortic stenosis, mean gradient 34 mmHg, aortic valve area 0.75 cm2. Trace TR. RVSP 28 mmHg. Mild dilatation of the ascending aorta. No changes from previous". Patient with 4 episodes of syncope. Rhythm strips reviewed and discussed with Dr. Griffin Langley. Currently off dopamine drip. Temporary pacer settings set at 60, currently patient sinus rhythm in the 70s to 80s with negative rhythm. Echo pending. Plan for permanent pacemaker insertion this afternoon. All questions answered. Patient and family verbalized understanding and agreed with plan. Discussion w patient/family: The assessment and plan as outlined above was discussed with the patient and/or family members who expressed understanding and agreement. All questions were answered. Thank you for involving us in the care of your patient. Please call with any questions. History of Present Illness Consult date: 09/18/18 Consult reason: Venticular Asystole Chief complaint: Passing Out History of present illness: Mr. Loomis is a 78 year old male with a history of CAD s/p PCI to mLAD and mRCA, s/p left carotid stent in 2006, and aortic stenosis. Since his last visit, patient underwent TAVR at [facility] - 04/26/2018, 29 mm Evolut R CoreValve. Postoperative LBBB reported. Also has past relevant history of GERD/Lopez's esophagus, factor V, HLD, DM 2, HTN. Electrophysiology consult for evaluation for permanent pacemaker insertion. Patient seen with family at bedside. Reports no history of syncope confirms valve replacement at [facility] April 2018. Reports catheterization March 2018 at [facility] with no stenting. He reports Tuesday evening episode of trying to sit on the bed and fell to the floor with some confusion. Had another episode the next day walking where he found himself on the floor with no awareness as to how. He reports Tuesday evening episode while urinating he felt ill for a similar situation. He reports that time felt a warm sensation to his head. He does report right arm bruise in his head with his fall. He indicates the episode occurred while in the ER witnessed by nursing staff. Prior to these episodes he denies any chest pain, short of breath, palpitations, headache, any strokelike symptoms. Patient and family deny any seizure-like activity. He denies any loss of bowel or bladder function. He reports prior to these episodes he has been experiencing intermittent episodes of "mental fog and confusion". Past Med Surg Social Fam HX - Past Medical History Attestation: Yes The following information was validated with the patient. Source: patient, old records reviewed, obtained from family Medical history: coronary artery disease, diabetes, GERD, hypertension, peripheral artery disease, valvular heart disease Additional medical history: irreg heart. factor V defeciency. bph Psychiatric history: no psych history - Past Surgical History Surgical History: angioplasty/stent, herniorrhaphy, orthopedic, other Additional surgical history: t&a. cardiac and carotid stents. ankle fx. aortic valve replacement - Social History Smoking Status: Never smoker Smokeless Tobacco Status: No Alcohol use: occasionally Drug use: none - Family History Father Living Status: Age at : 56 Hx Family Neuromuscular Disorders: Yes (Multiple sclerosis) Medications and Allergies Allergy/AdvReac Type Severity Reaction Status Date / Time No Known Allergies Allergy Unverified 03/02/16 10:58 All Systems Review: The remainder of the systems were reviewed and are negative - Cardiovascular Cardiovascular: as per HPI, syncope Physical Examination Vital Signs, Last 4 Hours Temp Pulse Resp BP Pulse Ox 09/18/18 10:00 68 15 139/74 93 09/18/18 09:00 74 14 133/75 97 09/18/18 08:47 63 09/18/18 08:43 97.6 F 09/18/18 08:00 63 16 102/71 94 General: Conversant, No Apparent Distress HEENT: Atraumatic, Normocephaly, Mucus Membranes Moist Neck: No JVD, Normal carotid pulses Cardiac: Reg Rate and Rhythm, Normal S1 and S2, No Murmur Lungs: Normal Breath Sounds, No Wheeze, Rales, Rhonchi Neuro: Alert and responsive, No focal deficits noted Abdomen: Soft, Non-Tender Skin: No rashes noted on visualized skin Musculoskeletal: No Chest Wall Tenderness Extremities: No Clubbing, No Cyanosis, No Edema, Normal Pulses Results 09/18/18 06:15 09/18/18 06:15 Lab Results Laboratory Tests 09/18/18 09/18/18 09/18/18 00:10 00:10 00:10 WBC 10.9 Hgb 13.3 Hct 37.7 INR 1.1 Creatinine 0.78 Est GFR (Non-Af Amer) > 60 Magnesium AST ALT Troponin I 0.03 09/18/18 09/18/18 06:15 06:15 WBC Hgb Hct INR Creatinine Est GFR (Non-Af Amer) Magnesium 1.7 AST 15 ALT 14 Troponin I 0.05 H* ITS Impressions Chest X-Ray 09/17/18 23:41 IMPRESSION: No acute focal airspace consolidation. D/ / Abraham Cisse MD / Abraham Cisse MD Interpreting Provider: Abraham Cisse MD Chest X-Ray 09/18/18 02:45 IMPRESSION: Tip of central line projects in region of proximal SVC. No definite pneumothorax D/ / Chriss Posada MD / Chriss Posada MD Interpreting Provider: Chriss Posada MD Chest X-Ray 09/18/18 04:33 IMPRESSION: 1. Right internal jugular approach pacer wire with distal lead tip overlying the right ventricular apex. 2. No acute focal airspace consolidation. D/ / Abraham Cisse MD / Abraham Cisse MD Interpreting Provider: Abraham Cisse MD Head CT 09/18/18 23:41 IMPRESSION: No acute intracranial abnormality. D/ / Holland Hines / Holland Hines Interpreting Provider: Holland Hines Active Medications Dextrose/Water (Dextrose 50% (Syg)) 25 ml IVP AD PRN PRN Reason: Hypoglycemia Stop: 03/20/19 05:12 Glucagon (Glucagen) 1 mg IM ONCE PRN PRN Reason: Hypoglycemia Stop: 03/20/19 05:12 Glucose (Gluctose) 15 gm PO ONCE PRN PRN Reason: Hypoglycemia Stop: 03/20/19 05:12 Glucose (Gluctose) 30 gm PO ONCE PRN PRN Reason: Hypoglycemia Stop: 03/20/19 05:12 Dopamine HCl/Dextrose (Dopamine Premix 400mg/250ml) 400 mg in 250 mls @ 7.995 mls/hr IVC .Q24H ANN MARIE; Protocol Stop: 03/20/19 02:01 Last Titration: 09/18/18 05:11 Dose: 0 mcg/kg/min, 0 mls/hr Documented by: Sodium Chloride (0.9 % Sodium Chloride) 1,000 mls @ 75 mls/hr IVC .[id number] ANN MARIE Stop: 09/18/18 18:19 Last Admin: 09/18/18 06:00 Dose: 75 mls/hr Documented by: Dextrose (Dextrose 5%) 1,000 mls @ 100 mls/hr IVC .Q10H PRN PRN Reason: HYPOGLYCEMIA Stop: 03/20/19 05:12 Cefazolin Sodium (Ancef Syringe 2,000 Mg/20 Ml) 2,000 mg in 20 mls @ 200 mls/hr IVPB PREOP ONE Stop: 09/18/18 10:25 Insulin Human Lispro (Humalog) 0 units SQ Q6HR ANN MARIE; Protocol Stop: 03/20/19 06:01 Last Admin: 09/18/18 06:01 Dose: 4 units Documented by: Naloxone HCl (Narcan) 0.4 mg IVP Q2M PRN PRN Reason: SEE COMMENTS Stop: 03/20/19 05:00 Consult Discharge Plan - Plan Instructions: Syncope (DC), Diabetes Mellitus Type 2 in Adults (DC) Referrals: Griffin Langley MD [Partnered Physician] - (Office will call patient with appointment date/time.) Rashad Solo MD [Primary Care Provider] - 09/26/18 1:30 pm <Griffin Langley - Last Filed: 09/19/18 13:28> Date of Encounter: 09/19/18 - Attending Attestation I have personally performed a face to face evaluation on this patient. I have reviewed and agree with the care plan. History and Exam by me shows: Intermittent complete heart block. Pacemaker indicated. Assessment and Plan Discussion w patient/family: The assessment and plan as outlined above was discussed with the patient and/or family members who expressed understanding and agreement. All questions were answered. Thank you for involving us in the care of your patient. Please call with any questions. History of Present Illness History of present illness: Mr. Loomis is a 78 year old male All Systems Review: The remainder of the systems were reviewed and are negative Physical Examination Vital Signs, Last 4 Hours Pulse Resp BP Pulse Ox 09/19/18 10:00 79 20 133/101 92 Results 09/19/18 06:06 09/19/18 06:06 Lab Results 09/19/18 09/19/18 06:06 06:06 WBC 8.5 Hgb 12.6 L Hct 36.6 L Plt Count 205 Sodium 134 L Potassium 4.0 Chloride 99 Carbon Dioxide 26 BUN 12 Creatinine 0.70 Glucose 137 H Calcium 8.8
--- NOTE | 2018-09-18 11:05 | Event Note ---
Date of Encounter: 09/18/18 Time of Encounter: 11:05 - Cardiology Event Note ECHO: Impressions: LVEF 60-65%. Normal LV chamber size, wall thickness and function. Mild left ventricular diastolic dysfunction. Normal right ventricular structure and function. h/o TAVR. Valve and leaflets not were well visualized. Normal function by Doppler. No prosthetic aortic stenosis. Mean gradient 8 mmHg. Trace aortic regurgitation. Unable to estimate RVSP due to lack of TR jet.
--- NOTE | 2018-09-18 13:07 | Pre-Sedation Evaluation ---
Pre-sedation evaluation - Pre-sedation checklist Date of procedure: 09/18/18 Procedure: Permanent pacemaker placement Recent Vitals: Last Vital Signs Temp 97.8 F 09/18/18 12:37 Pulse 84 09/18/18 12:00 Resp 20 09/18/18 12:00 BP 163/98 09/18/18 12:00 Pulse Ox 95 09/18/18 12:00 H&P (including ROS) documented in medical record: Yes Previous reaction to sedatives/anesthetics: No Dietary Status: NPO after Midnight Airway Assessment: Patient can open mouth completely, TMJ function normal, Micrognathia (under-bite, receding chin) absent Possible difficult airway: No ASA Classification *see protocol: CLASS II-Mild systemic disease Plan of Care: Pt appropriate candidate for procedure/moderate/conscious sedation, Risks/benefits of procedure/sedation discussed w/ patient/family
[2018-09-18] MEDS ORDERED: 0.9 % Sodium Chloride 500 ML ONE (13:08)
[2018-09-18] MEDS ORDERED: 0.9 % Sodium Chloride 1,000 ML ONE (13:16)
[2018-09-18] MEDS ORDERED: *HR* FentaNYL (PF) 100 MCG/2 ML VIAL ONE (13:37)
[2018-09-18] MEDS ORDERED: *HR* Midazolam HCl 2 MG/2 ML VIAL ONE (13:37)
[2018-09-18] MEDS ORDERED: Acetaminophen 325 MG TABLET PO PRN (14:38)
[2018-09-18] MEDS ORDERED: *HR* OxyCODONE Immed Rel 5 MG TABLET PO PRN (14:38)
[2018-09-19] MEDS: Insulin LISPRO 300 UNITS/3 ML VIAL SQ SCH (05:51)
[2018-09-19 06:18] LABS: Basophils # 0.1 K/mcL (0.0-0.2); Basophils % 0.6 %; Eosinophils # 0.3 K/mcL (0.0-0.6); Eosinophils % 3.3 %; Hematocrit 36.6 % (37.5-50.1); Hemoglobin 12.6 g/dL (12.9-16.9); Immature Granulocytes % 0.4 % (0-4); Lymphocytes # 1.3 K/mcL (0.6-4.6); Lymphocytes % 14.8 %; Mean Corpuscular HGB Conc 34.4 g/dL (31.6-35.5); Mean Corpuscular Hemoglobin 32.8 pg (28.0-33.3); Mean Corpuscular Volume 95.3 fL (83.0-100.0); Mean Platelet Volume 9.3 fL (9.4-12.4); Monocytes % 12.3 %; Neutrophils # 5.8 K/mcL (1.6-8.9); Platelet Count 205 K/mcL (140-400); Red Blood Count 3.84 M/mcL (4.19-5.50); Red Cell Distribution Width 12.8 % (11.5-14.5); Segmented Neutrophils % 68.6 %
[2018-09-19 06:37] LABS: BUN/Creatinine Ratio 17 (6-26); Blood Urea Nitrogen 12 mg/dL (8-23); Calcium 8.8 mg/dL (8.6-10.3); Carbon Dioxide 26 mEq/L (23-29); Chloride 99 mEq/L (98-107); Glucose 137 mg/dL (70-105); Osmolality,Calculated 280 (280-300); Sodium 134 mEq/L (136-145); eGFR For Non-African Americans > 60 (> 60)
--- NOTE | 2018-09-19 07:48 | Internal Med Progress Note ---
Hospitalist Progress Note - Encounter Date of Encounter: 09/19/18 - Exam Vitals: Temp Pulse Resp BP Pulse Ox 97.6 F 68 16 139/75 94 09/19/18 04:21 09/19/18 06:00 09/19/18 06:00 09/19/18 06:00 09/19/18 06:00 - Time Spent with Patient Total time spent is greater than 50% in coordination of care (as documented) at patient's floor/unit and/or counseling patient: Internal Medicine: Result - Labs CBC & Chem 7: 09/19/18 06:06 09/19/18 06:06 Labs: Short CBC 09/19/18 Range/Units 06:06 WBC 8.5 (4.3-11.1) K/mcL Hgb 12.6 L (12.9-16.9) g/dL Hct 36.6 L (37.5-50.1) % Plt Count 205 (140-400) K/mcL Neutrophils # 5.8 (1.6-8.9) K/mcL BMP 09/19/18 06:06 Sodium 134 L Potassium 4.0 Chloride 99 Carbon Dioxide 26 BUN 12 Creatinine 0.70 Glucose 137 H Calcium 8.8 - ABG Interpretation ABG results: PT/INR, D-dimer PT 12.8 Seconds (9.4-12.1) H 09/18/18 06:15 - Impressions Impressions Echocardiogram 09/18/18 06:16 Impressions: LVEF 60-65%. Normal LV chamber size, wall thickness and function. Mild left ventricular diastolic dysfunction. Normal right ventricular structure and function. h/o TAVR. Valve and leaflets not were well visualized. Normal function by Doppler. No prosthetic aortic stenosis. Mean gradient 8 mmHg. Trace aortic regurgitation. Unable to estimate RVSP due to lack of TR jet. Findings: Study Quality * Technically sub-optimal due to poor echocardiographic windows. ECG Findings * Sinus bradycardia. Left Ventricle * LVEF 60-65%. * Normal LV chamber size, wall thickness and function. * Mild left ventricular diastolic dysfunction. Right Ventricle * Normal right ventricular structure and function. Left Atrium * Mildly dilated left atrium. Right Atrium * Normal right atrial size. Aortic Valve * h/o TAVR. Valve and leaflets not were well visualized. Normal function by Doppler. * No prosthetic aortic stenosis. Mean gradient 8 mmHg. * Trace aortic regurgitation. Mitral Valve * Normal mitral valve structure and function. * No mitral stenosis. * No mitral regurgitation. Tricuspid Valve * Normal tricuspid valve structure and function. * No tricuspid regurgitation. * Unable to estimate RVSP due to lack of TR jet. Pulmonic Valve * Pulmonic valve not well visualized. Aorta * Not well visualized. Pericardium * There is a trivial pericardial effusion present. IVC * The IVC is not well evaluated. Pulmonary Artery * Pulmonary artery not well visualized. Chest X-Ray 09/18/18 14:38 IMPRESSION: Intact dual lead pacemaker with left chest generator. No pneumothorax. D/ / Donny Smith / Donny Smith Interpreting Provider: Donny Smith Consult Discharge Plan - Plan Referrals: Rashad Solo MD [Primary Care Provider] -
--- NOTE | 2018-09-19 08:47 | Electrophysiology ProgressNote ---
Date of Encounter: 09/19/18 Time of Encounter: 08:45 Assessment and Plan (1) Syncope Current Visit: Yes Status: Acute Per EP: 4 events on admit. Qualifiers: Syncope type: unspecified Qualified Code(s): R55 - Syncope and collapse (2) Ventricular asystolia Current Visit: Yes Status: Acute Per EP: Status post dual-chamber pacemaker insertion ([employer]). Pacer check completed within normal limits. CXR: FINDINGS: A new dual lead pacemaker is present with left chest generator. Leads are intact. Clear lungs. No pneumothorax, pleural effusion or airspace consolidation. Normal heart size and mediastinal contours. No acute osseous abnormality. XR/XR chest 1V portable IMPRESSION: Intact dual lead pacemaker with left chest generator. No pneumothorax. Discussed and reviewed with Dr. Griffin Langley, no further recommendations. Afebrile, WBC stable, temporary pacer out. Received IV antibiotics. Per discussion with Dr. Langley, no res for further antibiotics at this juncture. Post pacemaker education and instructions provided. Cardiology signing off, reconsult as needed, anticipate discharge home today. Follow-up arranged. All questions answered. Patient and verbalized understanding and agreed with plan. Discussion w patient/family: The assessment and plan as outlined above was discussed with the patient and/or family members who expressed understanding and agreement. All questions were answered. Thank you for involving us in the care of your patient. Please call with any questions. Subjective Principal diagnosis: Syncope, Venticular Asystole Interval history: Patient denies any concerns over night. Denies any chest pain, shortness of breath, palpitations. Reports ambulated with no difficulty. Denies any fever or chills. Objective Vital Signs, Last 4 Hours Temp Pulse Resp BP Pulse Ox 09/19/18 08:07 97.9 F 09/19/18 06:00 68 16 139/75 94 09/19/18 05:00 68 16 167/95 94 General: Conversant, No Apparent Distress HEENT: Atraumatic, Normocephaly, Mucus Membranes Moist Neck: No JVD, Normal carotid pulses Cardiac: Reg Rate and Rhythm, Normal S1 and S2, No Murmur Lungs: Normal Breath Sounds, No Wheeze, Rales, Rhonchi Neuro: Alert and responsive, No focal deficits noted Abdomen: Soft, Non-Tender Skin: No rashes noted on visualized skin, Other (Left anterior chest wall Steri- Strips dry and intact, incision well approximated, no erythema, no drainage, no bleeding, no ecchymosis) Musculoskeletal: No Chest Wall Tenderness Extremities: No Clubbing, No Cyanosis, No Edema, Normal Pulses Results 09/19/18 06:06 09/19/18 06:06 Lab Results Laboratory Tests 09/18/18 09/18/18 09/19/18 00:10 06:15 06:06 Hgb 12.6 L Hct 36.6 L Creatinine Est GFR (Non-Af Amer) Troponin I 0.03 0.05 H* 09/19/18 06:06 Hgb Hct Creatinine 0.70 Est GFR (Non-Af Amer) > 60 Troponin I Impressions Echocardiogram 09/18/18 06:16 Impressions: LVEF 60-65%. Normal LV chamber size, wall thickness and function. Mild left ventricular diastolic dysfunction. Normal right ventricular structure and function. h/o TAVR. Valve and leaflets not were well visualized. Normal function by Doppler. No prosthetic aortic stenosis. Mean gradient 8 mmHg. Trace aortic regurgitation. Unable to estimate RVSP due to lack of TR jet. Findings: Study Quality * Technically sub-optimal due to poor echocardiographic windows. ECG Findings * Sinus bradycardia. Left Ventricle * LVEF 60-65%. * Normal LV chamber size, wall thickness and function. * Mild left ventricular diastolic dysfunction. Right Ventricle * Normal right ventricular structure and function. Left Atrium * Mildly dilated left atrium. Right Atrium * Normal right atrial size. Aortic Valve * h/o TAVR. Valve and leaflets not were well visualized. Normal function by Doppler. * No prosthetic aortic stenosis. Mean gradient 8 mmHg. * Trace aortic regurgitation. Mitral Valve * Normal mitral valve structure and function. * No mitral stenosis. * No mitral regurgitation. Tricuspid Valve * Normal tricuspid valve structure and function. * No tricuspid regurgitation. * Unable to estimate RVSP due to lack of TR jet. Pulmonic Valve * Pulmonic valve not well visualized. Aorta * Not well visualized. Pericardium * There is a trivial pericardial effusion present. IVC * The IVC is not well evaluated. Pulmonary Artery * Pulmonary artery not well visualized. Chest X-Ray 09/18/18 14:38 IMPRESSION: Intact dual lead pacemaker with left chest generator. No pneumothorax. D/ / Donny Smith / Donny Smith Interpreting Provider: Donny Smith Active Medications Acetaminophen (Tylenol) 650 mg PO Q4HR PRN PRN Reason: Mild Pain Stop: 03/20/19 14:39 Aspirin (Aspirin Ec) 81 mg PO DAILY [facility] Stop: 03/21/19 09:01 Atorvastatin Calcium (Lipitor) 40 mg PO HS ANN MARIE Stop: 03/20/19 21:01 Last Admin: 09/18/18 20:41 Dose: 40 mg Documented by: Dextrose/Water (Dextrose 50% (Syg)) 25 ml IVP AD PRN PRN Reason: Hypoglycemia Stop: 03/20/19 05:12 Finasteride (Proscar) 5 mg PO DAILY [facility]; Protocol Stop: 03/21/19 09:01 Glucagon (Glucagen) 1 mg IM ONCE PRN PRN Reason: Hypoglycemia Stop: 03/20/19 05:12 Glucose (Gluctose) 15 gm PO ONCE PRN PRN Reason: Hypoglycemia Stop: 03/20/19 05:12 Glucose (Gluctose) 30 gm PO ONCE PRN PRN Reason: Hypoglycemia Stop: 03/20/19 05:12 Dextrose (Dextrose 5%) 1,000 mls @ 100 mls/hr IVC .Q10H PRN PRN Reason: HYPOGLYCEMIA Stop: 03/20/19 05:12 Insulin Human Lispro (Humalog) 0 units SQ Q6HR ANN MARIE; Protocol Stop: 03/20/19 06:01 Last Admin: 09/19/18 05:51 Dose: Not Given Documented by: Metoprolol Succinate (Toprol Xl) 25 mg PO DAILY [facility] Stop: 03/21/19 09:01 Naloxone HCl (Narcan) 0.4 mg IVP Q2M PRN PRN Reason: SEE COMMENTS Stop: 03/20/19 05:00 Oxycodone HCl (Roxicodone) 5 mg PO Q4HR PRN; Protocol PRN Reason: Severe Pain Stop: 03/20/19 14:39 Last Admin: 09/18/18 15:56 Dose: 5 mg Documented by: Pharmacy Profile Note (Patient Taking Own Medication) 0 each TP DAILY [facility] Stop: 03/21/19 09:01 Tamsulosin HCl (Flomax) 0.4 mg PO DAILY [facility]; Protocol Stop: 03/21/19 09:01 - Imaging and Cardiology Chest Xray: report reviewed Echo: report reviewed Consult Discharge Plan - Plan Referrals: Rashad Solo MD [Primary Care Provider] -
[2018-09-19] MEDS ORDERED: Finasteride 5 MG TABLET PO SCH (09:00)
[2018-09-19] MEDS ORDERED: FLUOROURACIL TP SCH (09:00)
[2018-09-19] MEDS ORDERED: Metoprolol XL (24 HR) Succ 25 MG TAB.ER.24H PO SCH (09:00)
[2018-09-19] MEDS ORDERED: Aspirin Enteric Coated 81 MG Tablet PO SCH (09:00)
[2018-09-19 10:52] VITALS: BP 133/101
--- NOTE | 2018-09-19 10:53 | Discharge Summary ---
<Herman Jaramillo - Last Filed: 09/19/18 11:31> Orders not resulted at time of discharge: Pending orders 09/18/18 00:11 Urinalysis reflex Microscopic [URIN] Stat Date of Encounter: 09/19/18 Time of Encounter: 10:51 - Discharge Diagnosis (1) Ventricular asystolia Priority: Primary Status: Acute (2) Syncope Priority: Secondary Status: Resolved Qualifiers: Syncope type: unspecified Qualified Code(s): R55 - Syncope and collapse (3) Type 2 diabetes mellitus Priority: Secondary Status: Acute Qualifiers: Diabetes mellitus vermin exterminator insulin use: without vermin exterminator use Diabetes mellitus complication status: with unspecified complications Qualified Code(s): E11.8 - Type 2 diabetes mellitus with unspecified complications (4) Coronary artery disease Priority: Secondary Status: Acute Qualifiers: Coronary Disease-Associated Artery/Lesion type: [place] artery [place] vs. transplanted heart: [place] heart Associated angina: without angina Qualified Code(s): I25.10 - Atherosclerotic heart disease of [place] coronary artery without angina pectoris (5) BPH (benign prostatic hyperplasia) Priority: Secondary Status: Chronic Qualifiers: Lower urinary tract symptom presence: symptoms present Lower urinary tract symptom detail: unspecified Qualified Code(s): N40.1 - Benign prostatic hyperplasia with lower urinary tract symptoms (6) DVT prophylaxis Priority: Secondary Status: Acute Hospital course: Mr. Loomis is a 78 year old male with history of coronary artery disease presented with chief complaint of syncope. Patient had 2 syncopal episodes 2 days before admission. He also had witnessed syncopal episode in the emergency department. He was found to have ventricular asystole moving to second-degree type II heart block. Cardiology was consulted and recommended patient be started on dopamine drip and he was taken to catheterization lab for a transvenous pacer to be placed. After placement of transvenous pacemaker patient did not have any additional episodes of syncope. Electrophysiology was consulted and patient underwent permanent dual-lead [employer] pacemaker. He had echocardiogram showing LVEF of 60-65% with mild left ventricular diastolic dysfunction and TAVR valvular leaflets were not well visualized. Patient did not have any complications from procedure and was watched overnight and after the procedure. This morning patient had a pacemaker check which was normal. This morning cardiology reports patient can be discharged home. He will follow-up with an outpatient. Discharge discussed with: patient, family - Time Spent with Patient Total time spent providing and/or coordinating discharge services: - Discharge Medications Prescriptions: Continued Finasteride [Proscar] 5 mg PO DAILY Fluorouracil [Fluoroplex] 1 applic TP DAILY Tamsulosin [Flomax] 0.4 mg PO DAILY Metoprolol Succinate [Toprol Xl] 25 mg PO DAILY Metformin HCl 500 mg PO DAILY Atorvastatin [Lipitor] 40 mg PO HS Aspirin [[place] Aspirin EC] 81 mg PO DAILY Home Medications: Aspirin [[place] Aspirin EC] 81 mg PO DAILY 09/18/18 [History] Atorvastatin [Lipitor] 40 mg PO HS 09/18/18 [History] Finasteride [Proscar] 5 mg PO DAILY 09/18/18 [History] Fluorouracil [Fluoroplex] 1 applic TP DAILY 09/18/18 [History] Metformin HCl 500 mg PO DAILY 09/18/18 [History] Metoprolol Succinate [Toprol Xl] 25 mg PO DAILY 09/18/18 [History] Tamsulosin [Flomax] 0.4 mg PO DAILY 09/18/18 [History] Allergies/Adverse Reactions: Allergy/AdvReac Type Severity Reaction Status Date / Time No Known Allergies Allergy Unverified 03/02/16 10:58 Date of admission: 09/18/18 04:59 Primary care physician: Rashad Solo MD Consults: 09/18/18 01:37 Consult to Cardiology [CONS] Stat Comment: Consulting Provider: Cardiology [facility] Reason for Consult: syncope, 13 beat run of p waves without QRS during syncopal event. Another tele strip also showed 2nd degree heart block. Has hx of TAVR in April of 2018. Time Notified: 01:40 Call Completed: Yes 09/18/18 10:22 Consult to Electrophysiology (EP) [CONS] Routine Consulting Provider: Electrophysiology Tata Reason for Consult: TV pacing, heart block Call Completed: Yes Discharging clinician: Herman Jaramillo Anticipated date of discharge: 09/19/18 - Constitutional Vitals: Temp Pulse Resp BP Pulse Ox 97.9 F 91 18 118/82 93 09/19/18 08:07 09/19/18 08:00 09/19/18 08:00 09/19/18 08:00 09/19/18 08:00 Exam: General: pleasant, without distress Cardiovascualr: Regular rate and rhythm , paced with no murmur, absent gallops or rubs, absent pedal edema, radial pulses 2 out of 4 Lungs: Clear to auscultation bilaterally, not in respiratory distress Abdomen: Soft nontender, nondistended positive bowel sounds Skin: warm and dry, absent rash, absent open wounds and nodules MSK: absent clubbing, cyanosis, joints without swelling Neuro: Cranial nerves II through XII intact, UE and LE sensation equal bilaterally, UE and LEstrength 5/5, alert oriented 3, gait intact Psych: good insight and judgment - Patient Status Disposition: Home, Self-Care Condition: Good Functional capacity at discharge: independent ambulation Overall status at discharge: patient is progressing back to baseline - Discharge Instructions Instructions: Syncope (DC), Diabetes Mellitus Type 2 in Adults (DC) Follow Up With: Griffin Langley MD [Partnered Physician] - (Office will call patient with appointment date/time.) Rashad Solo MD [Primary Care Provider] - 09/26/18 1:30 pm - Diet and Activity Activity: increase activity as tolerated Diet: diabetic diet, low fat, low cholesterol, low salt diet <Nehal López - Last Filed: 09/19/18 14:28> Orders not resulted at time of discharge: Pending orders 09/18/18 00:11 Urinalysis reflex Microscopic [URIN] Stat Date of Encounter: 09/19/18 - Discharge Diagnosis (1) Syncope Status: Resolved Qualifiers: Syncope type: unspecified Qualified Code(s): R55 - Syncope and collapse (2) [place] type 2 second degree heart block Status: Acute (3) Ventricular asystolia Status: Acute (4) Type 2 diabetes mellitus Status: Acute Qualifiers: Diabetes mellitus vermin exterminator insulin use: without longterm use Diabetes mellitus complication status: with unspecified complications Qualified Code(s): E11.8 - Type 2 diabetes mellitus with unspecified complications (5) Coronary artery disease Status: Acute Qualifiers: Coronary Disease-Associated Artery/Lesion type: [place] artery [place] vs. transplanted heart: [place] heart Associated angina: without angina Qualified Code(s): I25.10 - Atherosclerotic heart disease of [place] coronary artery without angina pectoris (6) BPH (benign prostatic hyperplasia) Status: Chronic Qualifiers: Lower urinary tract symptom presence: symptoms present Lower urinary tract symptom detail: unspecified Qualified Code(s): N40.1 - Benign prostatic hyperplasia with lower urinary tract symptoms (7) DVT prophylaxis Status: Acute Hospital course: Mr. Loomis is a 78 year old male - Time Spent with Patient Total time spent providing and/or coordinating discharge services: Date of admission: 09/18/18 04:59 Primary care physician: Rashad Solo MD Consults: 09/18/18 01:37 Consult to Cardiology [CONS] Stat Comment: Consulting Provider: Cardiology Tata Reason for Consult: syncope, 13 beat run of p waves without QRS during syncopal event. Another tele strip also showed 2nd degree heart block. Has hx of TAVR in April of 2018. Time Notified: 01:40 Call Completed: Yes 09/18/18 10:22 Consult to Electrophysiology (EP) [CONS] Routine Consulting Provider: Electrophysiology Tata Reason for Consult: TV pacing, heart block Call Completed: Yes - Constitutional Vitals: Temp Pulse Resp BP Pulse Ox 97.9 F 79 20 133/101 92 09/19/18 08:07 09/19/18 10:00 09/19/18 10:00 09/19/18 10:00 09/19/18 10:00 - Attending Attestation I examined this patient and my medical decision-making was reviewed with the Resident Physician. I agree with the documented findings, disposition and treatment plan as described except to the extent set forth below.
--- NOTE | 2018-09-19 16:11 | Electrocardiograph Report ---
Test Date: 2018-09-18 Pat Name: Chriss Loomis Department: [id number] Room: 11 Gender: M Bootmaker: : [id number] Requested By: Oscar Rodriguez Order Number: [id number] Reading MD: Hugo Davis Measurements Intervals [place] Rate: 71 P: -12 GA: 253 QRS: -33 QRSD: 96 T: 75 QT: 380 QTc: 413 Interpretive Statements Sinus rhythm Prolonged GA interval Abnormal R-wave progression, early transition LVH with secondary repolarization abnormality Electronically Signed On 09-19-2018 16:10:05 EDT by Hugo Davis
== END 2018-09-19 11:20 | disposition home or self-care (01) | DRG 242 ==
LOC: 3BNU 23:15 → EMEROOARM 23:15 → 2NNU 09-18 02:30 → ICNU 09-18 03:54 → SUATTDRO 09-18 04:59 → ICNU 09-18 05:17
PROVIDERS: ADMIT Internal Medicine; ATTEND Student in an Organized Health Care Education/Training Program